=== PATIENT | female | born 1965 | race Caucasian/White ===

== ENCOUNTER 2021-08-04 11:35 | Emergency (ER) | payer OTHER ==
[2021-08-04 12:20] VITALS: BP 159/73; PULSE 70; TEMP 98.2; BMI 23.2
== END 2021-08-04 16:10 | disposition home or self-care (01) ==
LOC: JER 11:35
DX: S32.010A Wedge compression fracture of first lumbar vertebra, initial encounter for closed fracture (principal); W01.0XXA Fall on same level from slipping, tripping and stumbling without subsequent striking against object, initial encounter
CPT/HCPCS: 72131-TC; 99281-25